=== PATIENT | female | born 1940 | race Caucasian/White ===

== ENCOUNTER 2024-12-25 06:55 | Day surgery (SDC) | payer MEDICAID ==
[~2024-12-25] VITALS: Ht 149.9 cm; Wt 69.0 kg
[~2024-12-25 06:55] MED LIST: SODIUM CHLORIDE 0.9% 1,000 ML ONE
[2024-12-25] MEDS: SODIUM CHLORIDE 0.9% 1,000 ML IV ONE (07:57)
[2024-12-25] MEDS ORDERED: FentaNYL CITRATE PF 100 MCG/2 ML VIAL ONE (08:09)
[2024-12-25] MEDS ORDERED: MIDAZOLAM HCL 2 MG/2 ML VIAL ONE (08:09)
[2024-12-25] MEDS ORDERED: LIDOCAINE 4% 50 ML SOLUTION ONE (09:29)
[2024-12-25] MEDS ORDERED: BENZOCAINE 20% 50 MCG/SPRAY 57 GM ONE (09:29)
[2024-12-25] MEDS ORDERED: LIDOCAINE 2% 11 ML JELLY ONE (09:29)
[2024-12-25] MEDS ORDERED: ALBUTEROL SULFATE 2.5 MG/0.5 ML NEB SOLUTION NEB ONE (09:29)
[2024-12-25] MEDS ORDERED: TIMO5DRO18 OU (09:37)
[2024-12-25] MEDS ORDERED: BRIN8DRO2 (09:37)
[2024-12-25] MEDS ORDERED: CHOL25TA4 PO (09:37)
[2024-12-25] MEDS ORDERED: FLUT1BLS19 IH (09:37)
[2024-12-25] MEDS ORDERED: CELE100 PO (09:37)
[2024-12-25] MEDS ORDERED: AZEL137S8 NASAL (09:37)
[2024-12-25] MEDS ORDERED: AMLO2.5T96 PO (09:37)
[2024-12-25] MEDS ORDERED: ASCO500 PO (09:37)
[2024-12-25] MEDS ORDERED: LATA2.5D7 (09:37)
[2024-12-25] MEDS ORDERED: TELM1TAB88 PO (09:37)
[2024-12-25] MEDS ORDERED: MONT-35 PO (09:37)
[2024-12-25] MEDS ORDERED: LACO100T14 PO (09:37)
[2024-12-25 10:23] VITALS: PULSE 60; RESP 17; O2SAT 95
== END 2024-12-25 14:15 | disposition home or self-care (01) ==
LOC: SDS 06:55
PROVIDERS: ATTEND Internal Medicine Critical Care Medicine
DX: R05.3 Chronic cough (principal); I10 Essential (primary) hypertension; Z72.89 Other problems related to lifestyle; Z98.51 Tubal ligation status
CPT/HCPCS: 31623; 87206; 87101; 87220; 87070; 31624; 71045; 87015; J3010; J2250; J2919; J7030; 88108; J7613; Z7610